=== PATIENT | female | born 1965 | race Caucasian/White ===

== ENCOUNTER 2016-10-15 21:28 | Emergency (ER) | payer MEDICARE ==
[2016-10-15 21:34] VITALS: RESP 18
[2016-10-15] MEDS ORDERED: KETOROLAC 30 MG/ML 1 ML VIAL IVP STA (22:09)
[2016-10-15] MEDS ORDERED: LORazepam 2 MG/ML SYRINGE IV STA ×2 (22:09→23:23)
--- NOTE | 2016-10-15 22:22 | ED ---
Chest Pain HPI - General Chief Complaint: Chest Pain Stated Complaint: Chest Pain Time Seen by Provider: 10/15/16 21:56 Source: patient Mode of arrival: ambulatory Limitations: no limitations - History of Present Illness Initial Comments: Is a 51-year-old came with history of diabetes and bipolar who presents to [facility] for right-sided chest pain that started earlier today. She states that the chest pain has been constant feels like an ache. She states that radiates to her back at times. She states that nothing makes it better or worse. It is not worse with deep breathing. She has no associated shortness of breath. No lightheadedness. No nausea or vomiting. No abdominal pain. She also admits to insomnia for the last 4 days. She states that she had her lithium increased a few days ago by her primary doctor and she believes that this is the reason why. She is more concerned about the insomnia than the chest discomfort and states that she just wants to go to sleep. She denies any suicidal or homicidal ideation. No other complaints. - Related Data Allergies Allergy/AdvReac Type Severity Reaction Status Date / Time No Known Allergies Allergy Verified 10/15/16 21:34 Review of Systems ROS Statement: Those systems with pertinent positive or pertinent negative responses have been documented in the HPI. ROS Other: All systems not noted in ROS Statement are negative. EKG Findings - EKG Comments: EKG Findings:: EKG showing normal sinus rhythm with a rate of 66. No ST segment changes. There is a T-wave inversion in V2. QTC is 448. Other intervals are normal. No ectopy. Past Medical History Past Medical History: Diabetes Mellitus, Hypertension History of Any Multi-Drug Resistant Organisms: None Reported Past Surgical History: No Surgical Hx Reported Past Psychological History: Bipolar Smoking Status: Current every day smoker Past Alcohol Use History: None Reported, Occasional Past Drug Use History: Marijuana General Exam - General Exam Comments Initial Comments: Constitutional: Awake alert Appears comfortable Head: Normocephalic atraumatic Eyes: no conjunctival injection No scleral icterus EOMI Neck: No JVD Supple Heart: Regular rate rhythm normal S1-S2 no murmurs Lungs: Clear to auscultation bilaterally No wheezing No rales Abdomen: Soft nondistended nontender Extremities: Non edematous DP pulses intact Radial pulses intact and equal bilaterally Neuro: A&Ox3 No focal neurologic deficits Psych: Appropriate mood and affect Limitations: no limitations Course Vital Signs 10/15/16 10/15/16 21:32 23:18 Temperature 98.3 F Pulse Rate 72 72 Respiratory 18 18 Rate Blood Pressure 162/71 131/64 O2 Sat by Pulse 98 98 Oximetry Chest Pain MDM - MDM This 50-year-old female presents emergency department for constant chest pain throughout the day. EKG was unremarkable. Troponin was negative. At this time I felt the patient's pain is atypical for ACS. It may be related to chest wall pain. She also complained of insomnia. She felt improved after Ativan. I told her to decrease her lithium dose back down to her previous dose since this seemed to make the insomnia worse when she had increased. She is to follow -up with her primary doctor next week. I told to return should worsening or changing symptoms are all questions were answered. Disposition Clinical Impression: Chest pain, Insomnia Disposition: HOME SELF-CARE Condition: Stable Instructions: Chest Pain (ED) Additional Instructions: Decrease lithium back down to previous dosing and follow-up with your primary doctor. Referrals: Valentina Giraldo DO [Primary Care Provider] - 1-2 days
[2016-10-15 22:26] LABS: Basophils % (A) 1 %; CHCM 33.3; Eosinophils # (A) 0.1 k/uL (0-0.7); Eosinophils % (A) 2 %; HCT 42.9 % (34.0-46.0); HDW 2.05; HGB 14.1 gm/dL (11.4-16.0); Luc # (Auto) 0.15; Luc % (Auto) 2; Lymphocytes # (A) 1.6 k/uL (1.0-4.8); Lymphocytes % (A) 26 %; MCH 31.6 pg (25.0-35.0); MCHC 32.7 g/dL (31.0-37.0); MCV 96.5 fL (80.0-100.0); Monocytes # (A) 0.4 k/uL (0-1.0); Monocytes % (A) 6 %; Neutrophils # (A) 3.8 k/uL (1.3-7.7); Neutrophils % (A) 63 %; RBC 4.45 m/uL (3.80-5.40); RDW 12.8 % (11.5-15.5)
--- NOTE | 2016-10-15 22:30 | XR ---
EXAMINATION TYPE: XR chest 2V DATE OF EXAM: 10/15/2016 10:24 PM COMPARISON: NONE HISTORY: Chest pain TECHNIQUE: Frontal and lateral views of the chest are obtained. FINDINGS: There is no focal air space opacity, pleural effusion, or pneumothorax seen. The cardiac silhouette size is within normal limits. The osseous structures are intact. IMPRESSION: No acute cardiopulmonary process.
[2016-10-15 22:34] LABS: Partial Thromboplastin Time 22.2 sec (22.0-30.0); Prothrombin Time 9.9 sec (9.0-12.0)
[2016-10-15 22:36] LABS: ALT 27 U/L (9-52); AST 23 U/L (14-36); Alkaline Phosphatase 61 U/L (38-126); Anion Gap 10 mmol/L; Blood Urea Nitrogen 16 mg/dL (7-17); Calcium 9.5 mg/dL (8.4-10.2); Carbon Dioxide 27 mmol/L (22-30); Chloride 101 mmol/L (98-107); Glucose 245 mg/dL (74-99); Lithium 0.3 mmol/L; Non-African American GFR(MDRD) >60 (>60 ml/min/1.73 sqM); Potassium 4.8 mmol/L (3.5-5.1); Sodium 138 mmol/L (137-145); Total Bilirubin 0.7 mg/dL (0.2-1.3); Total Protein 6.9 g/dL (6.3-8.2)
[2016-10-16 00:02] VITALS: BP 131/73; PULSE 75; TEMP 97.9
== END 2016-10-16 00:01 | disposition home or self-care (01) ==
LOC: EC 21:28
DX: R07.9 Chest pain, unspecified (principal); G47.00 Insomnia, unspecified; F31.9 Bipolar disorder, unspecified; E11.9 Type 2 diabetes mellitus without complications; I10 Essential (primary) hypertension; F17.200 Nicotine dependence, unspecified, uncomplicated
CPT/HCPCS: 93005; 80053; 83690; 80178; 84484; 85025; 85610; 85730; 71020; 96374; 96375; 96376; 99285; J2060; J1885

== ENCOUNTER → 2017-09-20 | Outpatient (CLI) | payer MEDICARE, BC ==
--- NOTE | 2017-09-21 09:56 | MM ---
Reason for exam: screening (asymptomatic). Last mammogram was performed 2 years and 6 months ago. History: Patient is postmenopausal and had first child at age 32. Benign core biopsy of both breasts. Physical Findings: A clinical breast exam by your physician is recommended on an annual basis and results should be correlated with mammographic findings. MG 3D Screening Mammo W/Cad Bilateral CC and MLO view(s) were taken. Prior study comparison: March 25, 2015, bilateral MG diagnostic mammo w CAD LIZ. April 24, 2013, bilateral digital screening mammo w/CAD. The breast tissue is extremely dense which could obscure a lesion on mammography. Stable scattered diffuse calcifications. No significant changes when compared with prior studies. ASSESSMENT: Benign, BI-RAD 2 RECOMMENDATION: Routine screening mammogram of both breasts in 1 year.
== END | disposition home or self-care (01) ==
LOC: RADMAMWWP 12:32
PROVIDERS: ATTEND Family Medicine
DX: Z12.31 Encounter for screening mammogram for malignant neoplasm of breast (principal)
CPT/HCPCS: 77063; 77067

== ENCOUNTER 2018-03-20 10:14 | Emergency (ER) | payer MEDICARE, BC ==
[2018-03-20 10:33] VITALS: RESP 20
[2018-03-20 10:45] LABS: Glucose,Whole Blood 262 mg/dL (75-99)
[2018-03-20] MEDS ORDERED: SODIUM CHLORIDE 0.9% 1,000 ML IV STA (10:50)
[2018-03-20 11:11] LABS: Basophils % (A) 1 %; Eosinophils # (A) 0.1 k/uL (0-0.7); Eosinophils % (A) 1 %; HCT 39.9 % (34.0-46.0); HGB 13.7 gm/dL (11.4-16.0); Lymphocytes # (A) 1.5 k/uL (1.0-4.8); Lymphocytes % (A) 25 %; MCH 32.2 pg (25.0-35.0); MCHC 34.4 g/dL (31.0-37.0); MCV 93.7 fL (80.0-100.0); Mean Platelet Volume 6.6; Monocytes # (A) 0.3 k/uL (0-1.0); Monocytes % (A) 5 %; Neutrophils % (A) 66 %; Platelet Count 258 k/uL (150-450); RBC 4.25 m/uL (3.80-5.40); RDW 13.6 % (11.5-15.5); VBG PH 7.43 (7.31-7.41)
[2018-03-20 11:39] LABS: ALT 30 U/L (9-52); AST 25 U/L (14-36); Albumin 4.3 g/dL (3.5-5.0); Alkaline Phosphatase 65 U/L (38-126); Amylase 35 U/L (30-110); Anion Gap 12 mmol/L; Blood Urea Nitrogen 17 mg/dL (7-17); Calcium 9.4 mg/dL (8.4-10.2); Carbon Dioxide 25 mmol/L (22-30); Chloride 101 mmol/L (98-107); Glucose 268 mg/dL (74-99); Lipase 82 U/L (23-300); Potassium 4.5 mmol/L (3.5-5.1); Sodium 138 mmol/L (137-145); Total Bilirubin 0.8 mg/dL (0.2-1.3); Total Protein 6.5 g/dL (6.3-8.2)
--- NOTE | 2018-03-20 11:56 | XR ---
EXAMINATION TYPE: XR KUB DATE OF EXAM: 03/20/2018 CLINICAL DATA: 52-year-old female with abdominal pain, PHH COMPARISON: None FINDINGS: Lung bases are clear. No evidence for free intraperitoneal air. No dilated small bowel or air-fluid levels. Scattered air and stool seen throughout the colon extendi ng distally into the rectum. Moderate stool in the pelvis. Phlebolith in the left side of the pelvis. Surgical clip on the right side of the pelvis. IMPRESSION: 1. Moderate stool. 2.No evidence of bowel obstruction or free intraperitoneal air.
[2018-03-20 12:15] LABS: Appearance,Urine Cloudy (Clear); Bacteria,Urine Occasional /hpf; Bilirubin,Urine Negative (Negative); Blood,Urine Negative (Negative); Color,Urine Yellow; Glucose,Urine (UA) 4+ (Negative); Leukocyte Esterase,Urine Large (Negative); Mucus,Urine Occasional /hpf; Nitrite,Urine Negative (Negative); PH, Urine 5.5 (5.0-8.0); Protein,Urine Trace (Negative); RBC,Urine 6 /hpf (0-5); Specific Gravity,Urine 1.021 (1.001-1.035); Squamous Epithelial Cell,Urine 10 /hpf (0-4); WBC,Urine 12 /hpf (0-5)
[2018-03-20 12:24] LABS: Ketones,Urine 2+ (Negative)
[2018-03-20] MEDS ORDERED: cefTRIAXone 2,000 MG in SODIUM CHLORIDE 0.9% 100 ML IVPB STA (12:45)
[2018-03-20] MEDS ORDERED: cefTRIAXone IN SWFI 2,000 MG/20 ML SYRINGE IVP STA (12:47)
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
[2018-03-20 13:30] VITALS: BP 108/66; PULSE 70; TEMP 98
== END 2018-03-20 13:30 | disposition home or self-care (01) ==
LOC: EC 10:14
DX: E11.65 Type 2 diabetes mellitus with hyperglycemia (principal); N30.90 Cystitis, unspecified without hematuria; R82.4 Acetonuria; F32.9 Major depressive disorder, single episode, unspecified; F17.200 Nicotine dependence, unspecified, uncomplicated; Z79.4 Long term (current) use of insulin; Z96.41 Presence of insulin pump (external) (internal); Z79.899 Other long term (current) drug therapy
CPT/HCPCS: 99283; 96374; 96361 ×2; 36415; 80053; 82150; 82803; 83605; 83690; 85025; 81001; 87040; 87086; 74018; J0696

== ENCOUNTER 2018-03-29 12:07 | Day surgery (SDC) | payer MEDICARE, BC ==
[2018-03-29] MEDS ORDERED: ALPRAZolam 0.5 MG TAB PO STA (12:56)
[2018-03-29 13:02] VITALS: PULSE 73; RESP 18
--- NOTE | 2018-03-29 14:25 | US ---
EXAMINATION TYPE: US FNA thyroid DATE OF EXAM: 03/29/2018 COMPARISON: NONE HISTORY: Thyroid nodule. Maximal barrier technique was utilized. After informed consent, skin overlying the lesion was locali zed with ultrasound and the overlying skin prepped and draped. Ultrasound was utilized using sterile technique. Lidocaine was used for local anesthesia. 6 passes with a 25-gauge needle were made into th e nodule and aspirated specimen was submitted to cytology. Following the procedure hemostasis achiev ed. No immediate complication. The patient discharged in stable condition. IMPRESSION: STATUS POST ULTRASOUND GUIDED FINE NEEDLE ASPIRATION OF THYROID NODULE, PATHOLOGY IS PEND ING. THIS PROCEDURE WAS PERFORMED BY THE UNDERSIGNED.
[2018-03-29 14:45] VITALS: BP 112/62
== END 2018-03-29 14:20 | disposition home or self-care (01) ==
LOC: RADPROMAIN 12:07
PROVIDERS: ATTEND Family Medicine
DX: E04.1 Nontoxic single thyroid nodule (principal)
CPT/HCPCS: 10022; 76942; 88173; 88305

== ENCOUNTER 2018-04-13 07:29 | Day surgery (SDC) | payer MEDICARE, BC ==
[2018-04-12 10:05] VITALS: BMI 22.4
[~2018-04-13 07:29] MED LIST: LACTATED RINGERS 1,000 ML IV SCH
[2018-04-13 07:51] VITALS: RESP 16; TEMP 98.6
[2018-04-13 08:04] LABS: Glucose,Whole Blood 89 mg/dL (75-99)
[2018-04-13] MEDS ORDERED: LIDOCAINE 1% 20 ML VIAL (10MG/ML) FOR IV START INTRADERMA ONE (08:10)
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
[2018-04-13] MEDS ORDERED: PROPOFOL 10 MG/ML 20 ML VIAL IV ONE (08:32)
[2018-04-13] MEDS ORDERED: LIDOCAINE 1% INJ 10MG/ML (20 ML MDV) ONE (08:32)
--- NOTE | 2018-04-13 08:50 | P.OP ---
Date of Procedure: 04/13/18 Preoperative Diagnosis: Hemorrhoids Screening colonoscopy Postoperative Diagnosis: Internal and external hemorrhoids Procedure(s) Performed: Colonoscopy Anesthesia: MAC Surgeon: Krishna Campbell Pathology: none sent Condition: stable Disposition: PACU Description of Procedure: The patient's placed on the endoscopy table in the lateral position. She received IV sedation. Digital rectal exam was performed which revealed internal and external hemorrhoids. The flexible colonoscope was then placed patient anus passed throughout the entire colon. The ileocecal valve was visualized. There was a large amount of liquid stool in the cecum. This limited view of the colon. The scope was withdrawn. The transverse colon descending colon and sigmoid colon appeared normal. Scope was brought back the rectum and this appeared normal. Scope was withdrawn for patient.
[2018-04-13 09:01] LABS: Glucose,Whole Blood 93 mg/dL (75-99)
[2018-04-13 09:23] VITALS: BP 148/83; PULSE 61
== END 2018-04-13 09:25 | disposition home or self-care (01) ==
LOC: ORWHC2ENDO 07:29
PROVIDERS: ATTEND Surgery
DX: K64.8 Other hemorrhoids (principal); K64.4 Residual hemorrhoidal skin tags; I10 Essential (primary) hypertension; E78.5 Hyperlipidemia, unspecified; E11.9 Type 2 diabetes mellitus without complications; Z79.4 Long term (current) use of insulin; Z96.41 Presence of insulin pump (external) (internal); F39 Unspecified mood [affective] disorder; Z79.899 Other long term (current) drug therapy
CPT/HCPCS: 45378; J2001; J2704

== ENCOUNTER 2018-04-20 07:42 | Day surgery (SDC) | payer MEDICARE, BC ==
[2018-04-12 10:17] VITALS: BMI 22.4
[~2018-04-20 07:42] MED LIST changes: +DEXAMETHASONE SOD PHOSPHATE 10 MG/ML 1 ML VIAL IV ONE; +HEPARIN SODIUM,PORCINE 5,000 UNIT/ML 1 ML VIAL SQ ONE; +HYDROmorphone 0.5 MG/0.5 ML SYRINGE IVP PRN; -LACTATED RINGERS 1,000 ML IV SCH; +LIDOCAINE 1% 20 ML VIAL (10MG/ML) FOR IV START INTRADERMA PRN; +MIDAZOLAM 2 MG/2 ML VIAL IV PRN; +NA PHOS,M-B/NA PHOS,DI-BA 133 ML ENEMA RECTAL ONE; +ONDANSETRON 4 MG/2 ML VIAL IVP ONE; +Pre Op ABX Message 1 EACH MISC MISCELLANE ONE; +SCOPOLAMINE 1.5MG/72HR PATCH TRANSDERM ONE
[2018-04-20 08:09] VITALS: RESP 16; TEMP 97.6
[2018-04-20] MEDS: LACTATED RINGERS 1,000 ML IV SCH ×2 (08:17→11:26)
[2018-04-20 08:20] LABS: Glucose,Whole Blood 95 mg/dL (75-99)
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
[2018-04-20] MEDS ORDERED: KETAMINE 10 MG/ML 20 ML VIAL ONE (09:07)
[2018-04-20] MEDS ORDERED: fentaNYL (PF) 50 MCG/ML 2 ML AMP ONE (09:07)
[2018-04-20] MEDS ORDERED: PROPOFOL 10 MG/ML 20 ML VIAL IV ONE (09:07)
[2018-04-20] MEDS ORDERED: MIDAZOLAM 2 MG/2 ML VIAL ONE (09:07)
[2018-04-20] MEDS ORDERED: GLYCOPYRROLATE 0.2 MG/ML 2 ML VIAL ONE (09:07)
[2018-04-20] MEDS ORDERED: BUPIVACAIN-EPI 0.5%-1:200,000 30 ML VIAL SQ ONE (09:25)
[2018-04-20] MEDS ORDERED: GELATIN SPONGE,ABSORB (LARGE) 1 EACH SPONGE TOPICAL ONE (09:29)
[2018-04-20] MEDS ORDERED: MORPHINE SULFATE 2 MG/ML SYRINGE IVP PRN (10:37)
[2018-04-20] MEDS ORDERED: MORPHINE SULFATE 4 MG/ML SYRINGE IVP ONE ×2 (10:42→10:59)
[2018-04-20 11:47] VITALS: BP 131/61; PULSE 81
--- NOTE | 2018-04-24 14:20 | P.OP ---
Date of Procedure: 04/20/18 Preoperative Diagnosis: internal and external hemorrhoids Postoperative Diagnosis: internal and external hemorrhoids Procedure(s) Performed: internal and external hemorrhoidectomy Anesthesia: MAC Surgeon: Krishna Campbell Estimated Blood Loss (ml): 5 Pathology: other (hemorrhoids) Condition: stable Disposition: PACU Description of Procedure: the patient is placed on the operative table in the prone jackknife position. She received IV sedation. Digital rectal exam performed which revealed internal and external hemorrhoids. Using the retractors the hemorrhoidal columns are visualized. The left lateral hemorrhoidal column was grasped with Allis clamps and then using the Harmonic scissors the examination is performed. The right anterior and right posterior hemorrhoid columns were excised in identical fashion. There was no bleeding seen. Gelfoam was placed in this. Patient thotolerated thet procedure well and was sent to recovery in stable condition.
== END 2018-04-20 12:19 | disposition home or self-care (01) ==
LOC: OR 07:42
PROVIDERS: ATTEND Surgery
DX: K64.8 Other hemorrhoids (principal); K64.4 Residual hemorrhoidal skin tags; E11.9 Type 2 diabetes mellitus without complications; F41.9 Anxiety disorder, unspecified; F32.9 Major depressive disorder, single episode, unspecified; F17.210 Nicotine dependence, cigarettes, uncomplicated; Z79.4 Long term (current) use of insulin; Z79.899 Other long term (current) drug therapy; Z96.41 Presence of insulin pump (external) (internal)
CPT/HCPCS: 88304; 46260; J2250; J2270; J1644; J1100; J2405; J3010; J2704

== ENCOUNTER → 2019-07-18 | Outpatient (CLI) | payer MEDICARE ==
--- NOTE | 2019-07-18 10:44 | US ---
EXAMINATION TYPE: US transvaginal DATE OF EXAM: 07/18/2019 COMPARISON: US 2010 cyst with a mural nodule. CLINICAL HISTORY: B37.3 Candidiasis of vulva and vagina,N94.19 dyspa. Yeast infection, patient states no pain or bleeding, 6, para 1, miscarriage 4, ectopic 1 TECHNIQUE: Transvaginal exam only per ordering physician Date of LMP: 6 years ago EXAM MEASUREMENTS: Uterus: 4.9 x 2.3 x 3.3 cm Endometrial Stripe: 0.2 cm Right Ovary: not seen Left Ovary: 6.7 x 4.1 x 5.4 cm 1. Uterus: anteverted, heterogeneous, nabothian cysts seen 2. Endometrium: wnl 3. Right Ovary: not seen due to overlying bowel gas 4. Left Ovary: 5.7 x 3.5 x 4.8cm cyst . This does not appear simple as there is an avascular mural n odule measuring 1.4 x 0.5 cm. No internal septations. This previously measured 4.5 x 3.1 cm on the ex am of 2010. Spectral, color and waveform doppler imaging shows good arterial and venous flow within the left ov aisha. 5. Bilateral Adnexa: wnl 6. Posterior cul-de-sac: wnl IMPRESSION: Interval growth of a complex left ovarian cyst previously measuring 4.5 cm now measuring up to 5.7 cm. There is a mural nodule seen. Given the size and patient's age consensus criteria recom mends surgical evaluation or MRI with contrast. Considerations are for cystoadenofibroma or malignant neoplasm given the avascular mural nodule present.
== END | disposition home or self-care (01) ==
LOC: RADUSWWP 09:49
PROVIDERS: ATTEND Family Medicine
DX: N83.292 Other ovarian cyst, left side (principal)
CPT/HCPCS: 76830; 93976

== ENCOUNTER → 2019-08-20 | Outpatient (CLI) | payer MEDICARE ==
--- NOTE | 2019-08-20 23:12 | MR ---
EXAMINATION TYPE: MR abdomen wo/w con DATE OF EXAM: 08/20/2019 COMPARISON: Transvaginal ultrasound July 18, 2019. HISTORY: Patient presents with pelvic mass CONTRAST: Standard multiplanar, multisequence MRI departmental protocol utilizing 6 mL intravenous Gadavist rey olinium contrast. FINDINGS: Lung bases are grossly clear. Patient has very little intra-abdominal fat. The liver, gallb ladder, spleen, pancreas, and both adrenal glands are all within normal limits. No biliary dilatation . There is no concerning renal mass or hydronephrosis. There is no suspicious bowel dilatation. No co ncerning abdominal fluid collection or adenopathy. Visualized osseous structures are intact. IMPRESSION: As above. Unremarkable abdominal MRI. Patient scheduled for pelvic MRI also.
== END | disposition home or self-care (01) ==
LOC: RADMRIMAIN 17:54
PROVIDERS: ATTEND Obstetrics & Gynecology
DX: R19.00 Intra-abdominal and pelvic swelling, mass and lump, unspecified site (principal)
CPT/HCPCS: 74183; A9585

== ENCOUNTER → 2019-08-22 | Outpatient (CLI) | payer MEDICARE ==
--- NOTE | 2019-08-23 11:51 | MR ---
EXAMINATION TYPE: MR pelvis wo/w con DATE OF EXAM: 08/22/2019 4:48 PM COMPARISON: Ultrasound 07/18/2019 HISTORY: Pelvis mass seen on US TECHNIQUE: Multiplanar multiecho imaging of the pelvis was performed without and subsequently with i ntravenous contrast. Contrast used was 6 mL of Gadavist. FINDINGS: There is a mass corresponding to the ultrasound abnormality measuring 5.7 x 3.5 x 4.8 cm with periphe ral rim enhancement and peripheral mural thickening. No definite pathologic adenopathy or extension t o the right hemipelvis. Bladder has a normal appearance. Bowel gas pattern nonspecific. Degenerative change lower lumbar spin e. Uterus is atrophic. Endometrial demonstrates a normal signal pattern. No free fluid. Right ovary is not seen with certainty. IMPRESSION: 1. There is a 5.7 cm left adnexal mass likely ovarian with peripheral enhancement in neural thickenin g. Recommend correlation with CA 125 and surgical consultation. No free fluid. No definite lymphadeno cristine. No definite evidence of capsular disruption. Differential diagnosis continues to include benig n as well as malignant ovarian neoplasms.
== END | disposition home or self-care (01) ==
LOC: RADMRIMAIN 15:32
PROVIDERS: ATTEND Obstetrics & Gynecology
DX: R19.09 Other intra-abdominal and pelvic swelling, mass and lump (principal)
CPT/HCPCS: 72197; A9585

== ENCOUNTER → 2019-08-27 | Outpatient (CLI) | payer MEDICARE ==
[2019-08-27 19:25] LABS: Carcinoembryonic Antigen 1.7 ng/mL (0.0-4.9)
[2019-08-27 20:05] LABS: Cancer Antigen 19-9 <1.2 U/mL (0.0-34.9)
== END | disposition home or self-care (01) ==
LOC: LABWHC1 12:28
PROVIDERS: ATTEND Obstetrics & Gynecology
DX: R22.9 Localized swelling, mass and lump, unspecified (principal)
CPT/HCPCS: 36415; 82378; 86301

== ENCOUNTER → 2019-08-31 | Outpatient (CLI) | payer MEDICARE ==
--- NOTE | 2019-09-03 10:40 | MM ---
Reason for exam: screening (asymptomatic). Last mammogram was performed 1 year and 11 months ago. History: Patient is postmenopausal and had first child at age 32. Benign core biopsy of both breasts. Physical Findings: A clinical breast exam by your physician is recommended on an annual basis and results should be correlated with mammographic findings. MG 3D Screening Mammo W/Cad Bilateral CC and MLO view(s) were taken. Prior study comparison: September 20, 2017, bilateral MG 3d screening mammo w/cad. March 25, 2015, bilateral MG diagnostic mammo w CAD LIZ. The breast tissue is extremely dense which could obscure a lesion on mammography. There is no discrete abnormality. No significant changes when compared with prior studies. ASSESSMENT: Negative, BI-RAD 1 RECOMMENDATION: Routine screening mammogram of both breasts in 1 year.
== END | disposition home or self-care (01) ==
LOC: RADMAMWWP 12:24
PROVIDERS: ATTEND Family Medicine
DX: Z12.31 Encounter for screening mammogram for malignant neoplasm of breast (principal)
CPT/HCPCS: 77063; 77067

== ENCOUNTER → 2021-06-19 | Outpatient (CLI) | payer MEDICARE ==
--- NOTE | 2021-06-19 11:50 | XR ---
Right hip HISTORY: Right hip pain 2 views the right hip Bone mineralization, joint spaces and alignment are maintained. No fracture or dislocation. Surgical clips present in the right hemipelvis. Mild marginal spurring present at the femoral head on the obli que view. IMPRESSION: There may be some mild osteoarthritic change, MRI could BE performed for additional evalu ation as indicated.
== END | disposition home or self-care (01) ==
LOC: RADXRMAIN 10:27
PROVIDERS: ATTEND Physician Assistant Medical
DX: M25.551 Pain in right hip (principal)
CPT/HCPCS: 73502

== ENCOUNTER 2021-12-02 07:42 | Day surgery (SDC) | payer MEDICARE ==
[2021-12-01 10:49] VITALS: BMI 21.7
[~2021-12-02 07:42] MED LIST changes: -DEXAMETHASONE SOD PHOSPHATE 10 MG/ML 1 ML VIAL IV ONE; -HEPARIN SODIUM,PORCINE 5,000 UNIT/ML 1 ML VIAL SQ ONE; -HYDROmorphone 0.5 MG/0.5 ML SYRINGE IVP PRN; +LACTATED RINGERS 1,000 ML IV SCH; +LIDOCAINE 1% (10MG/ML) FOR IV START INTRADERMA PRN; -LIDOCAINE 1% 20 ML VIAL (10MG/ML) FOR IV START INTRADERMA PRN; -MIDAZOLAM 2 MG/2 ML VIAL IV PRN; -NA PHOS,M-B/NA PHOS,DI-BA 133 ML ENEMA RECTAL ONE; -ONDANSETRON 4 MG/2 ML VIAL IVP ONE; -Pre Op ABX Message 1 EACH MISC MISCELLANE ONE; -SCOPOLAMINE 1.5MG/72HR PATCH TRANSDERM ONE
[2021-12-02 08:20] VITALS: TEMP 96.8
[2021-12-02 08:34] LABS: Glucose,Whole Blood 201 mg/dL (75-99)
[2021-12-02] MEDS ORDERED: LIDOCAINE 1% INJ 10MG/ML (20 ML MDV) ONE (08:47)
[2021-12-02] MEDS ORDERED: PROPOFOL 10 MG/ML 20 ML VIAL IV ONE (08:47)
--- NOTE | 2021-12-02 09:03 | P.PCN ---
Date of Procedure: 12/02/21 Procedure(s) Performed: BRIEF HISTORY: Patient is a 56-year-old pleasant female scheduled for an elective colonoscopy as a part of evaluation of chronic diarrhea for the last several months duration. She was having about 3-4 loose watery bowel movements daily. No blood or mucus in the stool. PROCEDURE PERFORMED: Colonoscopy with random biopsies. PREOPERATIVE DIAGNOSIS: Chronic diarrhea of 6 months duration. IV sedation per Anesthesia. PROCEDURE: After informed consent was obtained, the patient, was brought into the endoscopy unit. IV sedation was administered by Anesthesia under continuous monitoring. Digital rectal examination was normal. Initially the Olympus CF-160 flexible video colonoscope was then inserted in the rectum, gradually advanced into the cecum without any difficulty. Careful examination was performed as the scope was gradually being withdrawn. Ileocecal valve and the appendiceal orifice were visualized and appeared normal. Prep was excellent. Mucosa of the cecum, ascending colon, transverse colon, descending colon, sigmoid colon, and rectum appeared normal. Random biopsies were done from ascending and descending/collagenous colitis. Retroflexion was performed in the rectum and no lesions were seen. The patient tolerated the procedure well. IMPRESSION: Normal-appearing colon from rectum to cecum with no evidence of colorectal neoplasia . RECOMMENDATIONS: Findings of this examination were discussed with the patient as well as a family. She was advised to follow with the biopsy results R And use [id number] Imodium as needed for the chronic diarrhea. epeat colonoscopy in 10 years.
[2021-12-02 09:24] VITALS: BP 124/79; PULSE 63; RESP 18
== END 2021-12-02 09:43 | disposition home or self-care (01) ==
LOC: ORWHC2ENDO 07:42
PROVIDERS: ATTEND Internal Medicine Gastroenterology
DX: K52.9 Noninfective gastroenteritis and colitis, unspecified (principal); E78.5 Hyperlipidemia, unspecified; E11.9 Type 2 diabetes mellitus without complications; Z79.899 Other long term (current) drug therapy; Z79.4 Long term (current) use of insulin; Z98.890 Other specified postprocedural states
CPT/HCPCS: 88305; 45380; J2001; J2704

== ENCOUNTER → 2024-09-10 | Outpatient (CLI) | payer MEDICARE ==
--- NOTE | 2024-09-10 13:06 | MR ---
EXAMINATION TYPE: MR brain wo/w con DATE OF EXAM: 09/10/2024 11:12 AM COMPARISON: None. CLINICAL INDICATION: Female, 59 years old with history of R41.3 OTHER AMNESIA, Memory loss. IV Contrast: 5 cc Gadobutrol (None if empty) TECHNIQUE: Multiplanar, multisequence images of the brain and brainstem were acquired before and aft er administration of 5 mL IV Gadobutrol. Diffusion weighted imaging is performed. FINDINGS: No evidence for acute infarction, hemorrhage, mass, mass effect, midline shift, herniation, effacemen t of basal cisterns, or extra-axial fluid collection. The ventricles and sulci are age-appropriate. Mild cerebral cortical volume loss. Major intracranial flow voids are intact. Dominant right vertebral artery T2/FLAIR weighted sequences show mild right white matter changes particularly in the subcortical marilyn on of the right cerebral hemisphere and anterior right basal ganglia Midline structures demonstrate n ormal morphology. The craniocervical junction is normal. Post contrast images demonstrate no evidence of pathologic enhancement. Dural venous sinuses are pat ent. Multilocular cystic change along the posterior nasopharynx measuring up to 9 mm in aggregate dimensio n 1.4 cm. Small amount of fluid within the inferior right mastoid air cells. Mild mucosal thickening floors of the maxillary sinuses and moderate within both ethmoid air cells and frontal sinuses. Globes are inta ct. IMPRESSION: 1. No acute intracranial abnormality or enhancing intracranial lesions seen. 2. Mild cerebral atrophy and mild burden of chronic small vessel ischemic disease.. 3. Mild to moderate chronic ethmoid and frontal sinus disease. 4. Multilocular cystic change along the posterior nasopharynx measuring up to 1.4 cm. Possibly mucosa l retention cysts. Consider direct visualization to exclude other mucosal lesion. [facility], , 09/10/2024 1:03 PM
== END | disposition home or self-care (01) ==
LOC: RADMRIMAIN 09:51
PROVIDERS: ATTEND Family Medicine
DX: R41.3 Other amnesia (principal); I67.82 Cerebral ischemia; J32.2 Chronic ethmoidal sinusitis
CPT/HCPCS: 70553; A9585

== ENCOUNTER 2025-02-28 06:48 | Day surgery (SDC) | payer MEDICARE ==
[2025-02-28] MEDS ORDERED: LIDOCAINE 1% (10MG/ML) FOR IV START INTRADERMA PRN (07:24)
[2025-02-28] MEDS: IV FLUID CONTINUATION 1,000 ML IV ONE (07:25)
[2025-02-28 07:29] VITALS: TEMP 97.1
[2025-02-28 07:35] LABS: Glucose,Whole Blood 288 mg/dL (70-110)
[2025-02-28] MEDS: LACTATED RINGERS 1,000 ML IV SCH (07:42)
[2025-02-28 07:43] LABS: Glucose,Whole Blood 300 mg/dL (70-110)
[2025-02-28 07:43] LABS: Glucose,Whole Blood 275 mg/dL (70-110)
[2025-02-28] MEDS ORDERED: LIDOCAINE 1% INJ 10MG/ML (20 ML MDV) ONE (07:45)
[2025-02-28] MEDS ORDERED: PROPOFOL 10 MG/ML 20 ML VIAL IV ONE (07:45)
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
--- NOTE | 2025-02-28 08:08 | P.OP ---
Date of Procedure: 02/28/25 Preoperative Diagnosis: Hemorrhoids Screening colonoscopy Postoperative Diagnosis: Internal hemorrhoids Mild diverticulosis Procedure(s) Performed: Colonoscopy Anesthesia: MAC Surgeon: Krishna Campbell Pathology: none sent Condition: stable Disposition: PACU Description of Procedure: Patient was placed on the endoscopy table in the lateral position. She received IV sedation. Digital rectal exam was performed. This revealed a few internal hemorrhoids. The flexible colonoscope was then placed patient anus passed throughout the entire colon. The cecum and right colon had a large amount of liquid stool. The prep was poor. The visualized colon appeared normal. The scope was then withdrawn. The transverse colon appeared normal. In the descending and sigmoid colon there is mild diverticular changes. Scope was then brought back to the rectum this appeared normal. Scope withdrawn the patient.
[2025-02-28 08:23] VITALS: BP 138/73; PULSE 58; RESP 18
== END 2025-02-28 08:40 | disposition home or self-care (01) ==
LOC: ORWHC2ENDO 06:48
PROVIDERS: ATTEND Surgery
DX: Z12.11 Encounter for screening for malignant neoplasm of colon (principal); K64.8 Other hemorrhoids; K57.30 Diverticulosis of large intestine without perforation or abscess without bleeding; E11.9 Type 2 diabetes mellitus without complications; E78.5 Hyperlipidemia, unspecified; F17.200 Nicotine dependence, unspecified, uncomplicated; Z79.4 Long term (current) use of insulin
CPT/HCPCS: J2003; J2704; G0121